=== PATIENT | male | born 2000 | race African-American/Black ===

== ENCOUNTER 2018-01-07 13:39 | Emergency (ER) | payer BC ==
[~2018-01-07] VITALS: Ht 182.9 cm; Wt 70.9 kg
[2018-01-07 13:42] VITALS: TEMP 97.9
[2018-01-07] MEDS ORDERED: OMEGA-3 1000 MG1 CAP PO (14:10)
[2018-01-07 14:26] LABS: INR 1.1 (0.8-3.0)
[2018-01-07 14:55] VITALS: BP 118/72; PULSE 58
== END 2018-01-07 15:03 | disposition home or self-care (01) ==
LOC: COL.ER 13:39
PROVIDERS: Emergency Medicine
DX: R07.89 Other chest pain (principal); F41.9 Anxiety disorder, unspecified; T43.615A Adverse effect of caffeine, initial encounter; F17.210 Nicotine dependence, cigarettes, uncomplicated

== ENCOUNTER 2021-08-20 08:50 | Observation (INO) | payer BC ==
[~2021-08-20] VITALS: Wt 56.4 kg
[~2021-08-20 08:50] MED LIST: OMEGA-3 1000 MG1 CAP PO
[2021-08-20 09:58] LABS: BASO % 0.3 % (0.0-2.0); EOS % 0.5 % (0.0-4.0); GRAN # 2.2 K/mm3 (1.4-6.5); GRAN % 58.2 % (42.2-75.2); HEMATOCRIT 41.2 % (42.0-52.0); HEMOGLOBIN 12.8 g/dl (13.5-18.0); LYMPH # 1.1 K/mm3 (1.2-3.4); LYMPH % 28.6 % (20.0-51.0); MEAN CELL VOLUME 78 fl (80.0-100.0); MEAN CORPUSCULAR HEMOGLOBIN 24 pg (27-31); MEAN CORPUSCULAR HGB CONC 31 g/dl (33.0-37.0); MEAN PLATELET VOLUME 12.3 fl (7.4-10.4); MONO # 0.5 K/mm3 (0.1-0.6); MONO % 12.1 % (1.7-9.3); PLATELET COUNT 150 K/mm3 (130-400); RED BLOOD COUNT 5.31 M/mm3 (4.20-5.60); REDCELL DISTRIBUTION WIDTH-CV 13.4 % (11.5-14.5)
[2021-08-20 10:17] LABS: ALBUMIN 3.6 gm/dL (3.5-5.0); BILIRUBIN,TOTAL 0.5 mg/dL (0.2-1.2); C-REACTIVE PROTEIN 0.46 mg/dL (0.00-0.50); CALCIUM 9.4 mg/dL (8.4-10.2); CREATININE, serum 0.57 mg/dL (0.72-1.25); MAGNESIUM 1.5 mg/dL (1.6-2.6); TOTAL PROTEIN 6.9 gm/dL (6.2-8.1)
[2021-08-20 10:19] LABS: POTASSIUM 1.5 mmol/L (3.5-4.5)
[2021-08-20 10:40] LABS: COLLECTION METHOD CLEAN CATCH
[2021-08-20 10:47] LABS: MUCOUS Present (NOT PRESENT); PH 6 (5-8); SQUAMOUS EPITHELIAL None Seen /hpf (0-10); URINE APPEARANCE Clear (CLEAR/HAZY); URINE BACTERIA None Seen /hpf (NONE SEEN); URINE BILIRUBIN Negative (NEGATIVE); URINE BLOOD 1+ (NEGATIVE); URINE COLOR Yellow (YELLOW); URINE GLUCOSE Negative (NEGATIVE); URINE KETONE Negative (NEGATIVE); URINE LEUKOCYTE ESTERASE Negative (NEGATIVE); URINE NITRATE Negative (NEGATIVE); URINE PROTEIN(semi-quant) Negative (NEGATIVE); URINE RBC 0-2 /hpf (0-2); URINE UROBILINOGEN Negative (NEGATIVE)
[2021-08-20 13:59] VITALS: BP 136/62; PULSE 115; TEMP 98
--- NOTE | 2021-08-20 14:33 | NUR ---
PT ARRIVED TO ROOM 350 VIA CART. A&O, VSS. PT TRANSFERRED TO BED WITHOUT MUCH DIFFICULTY. PT DENIES PAIN AT THIS TIME. OREIENTED TO ROOM AND CALL LIGHT. BED IN LOWEST LOCKED POSITION.
[2021-08-20 15:44] LABS: CALCIUM 8.8 mg/dL (8.4-10.2); CREATININE, serum 0.58 mg/dL (0.72-1.25)
--- NOTE | 2021-08-20 15:52 | NUR ---
First visit from the manager of enterprise. No needs right now.
[2021-08-20 18:15] VITALS: BP 135/60; PULSE 104; TEMP 97.4
[2021-08-20 19:35] VITALS: BP 140/68; PULSE 101; TEMP 98
--- NOTE | 2021-08-20 21:10 | NUR ---
Pt. sitting up in bed. Pt. is A&OX3, assessment complete. INT to rt. ac patent. Pt. reported mild back pain, gave Tylenol. Pt. denies further needs, call light within reach.
[2021-08-20 23:57] VITALS: BP 136/66; PULSE 88; TEMP 98.4
[2021-08-21 03:01] VITALS: BP 110/60; PULSE 50; TEMP 98.2
[2021-08-21 03:10] VITALS: BP 132/63; PULSE 84; TEMP 97.8
[2021-08-21 06:15] LABS: HEMATOCRIT 38.7 % (42.0-52.0); HEMOGLOBIN 12.5 g/dl (13.5-18.0); MEAN CELL VOLUME 76 fl (80.0-100.0); MEAN CORPUSCULAR HEMOGLOBIN 25 pg (27-31); MEAN CORPUSCULAR HGB CONC 32 g/dl (33.0-37.0); MEAN PLATELET VOLUME 12.4 fl (7.4-10.4); PLATELET COUNT 159 K/mm3 (130-400); RED BLOOD COUNT 5.09 M/mm3 (4.20-5.60); REDCELL DISTRIBUTION WIDTH-CV 13.4 % (11.5-14.5)
[2021-08-21 06:21] LABS: CALCIUM 9.9 mg/dL (8.4-10.2); CREATININE, serum 0.54 mg/dL (0.72-1.25); MAGNESIUM 1.6 mg/dL (1.6-2.6); POTASSIUM 4.3 mmol/L (3.5-4.5)
[2021-08-21 08:31] VITALS: BP 122/50; PULSE 83; TEMP 97.4
--- NOTE | 2021-08-21 10:32 | NUR ---
RORY met with the patient to discuss discharge plan. The patient lives in [place] with two roommates and works at [employer] He reports that he has not been working lately, due to having to quarantine. He reports independence with ADLs and does not have any DME. The patient does not have a PCP. [facility] The patient confirms that he does have [employer], but he is still concerned about being able to pay the hospital bill. RORY consulted Financial Counseling. The patient's mother, Sun (ph#[phone]), is his emergency contact. She lives in [place]. The patient is to discharge back home with his roommates today. The patient does not have car and no one is able to transport him home. RORY provided the patient's RN with a taxi voucher for him. RORY also provided the patient with [facility] Resource Guide. The assembler unit secured the patient a follow up appointment with ZENON Castaneda at [facility] on 08/28/21 at 1000. No additional needs at this time.
--- NOTE | 2021-08-21 12:01 | NUR ---
PT MET CRITERIA FOR DISCHARGE, VSS. WEAKNESS GREATLY IMPROVED. IV REMOVED WITHOUT COMPLICATIONS, CATHETER INTACT. DISCHARGE INSTRUCTIONS REVIEWED, PT VERBALIZED UNDERSTANDING. PT AWARE OF F/U APPT AND LABS. PT DC TO HOME VIA WHEELCHAIR ACCOMPANIED BY SUPERVISOR FISHING.
== END 2021-08-21 12:05 | disposition home or self-care (01) ==
LOC: COL.ER 08:50 → SURG 13:24
PROVIDERS: Emergency Medicine; ADMIT Internal Medicine
DX: E87.6 Hypokalemia (principal); R53.1 Weakness; M62.82 Rhabdomyolysis; E83.42 Hypomagnesemia; F17.210 Nicotine dependence, cigarettes, uncomplicated; Z83.3 Family history of diabetes mellitus
CPT/HCPCS: G0378; J3475; J3480; J7030